=== PATIENT | female | born 1955 | race African-American/Black ===

== ENCOUNTER 2016-10-11 22:28 | Observation (INO) | payer OTHER ==
[~2016-10-11] VITALS: Ht 165.1 cm; Wt 95.1 kg
[2016-10-11] MEDS ORDERED: ACETAMINOPHEN 325 MG TAB PO STA (22:43)
[2016-10-11] MEDS ORDERED: SODIUM CHLORIDE 0.9% 1L BAG IV* STA (22:43)
[2016-10-11 23:29] LABS: ADD SCAN DIFF NO
[2016-10-11 23:33] LABS: BASOPHILS % 0.4 % (0.0-2.0); EOSINOPHILS # 0.5 10^3/ul (0.0-0.5); EOSINOPHILS % 4.3 % (0.0-7.0); HEMATOCRIT 30.8 % (37.0-47.0); HEMOGLOBIN 9.8 g/dl (12.0-16.0); LYMPHOCYTES # 1.9 10^3/ul (0.8-2.9); LYMPHOCYTES % 16.9 % (15.0-51.0); MEAN CORPUSCULAR HEMOGLOBIN 29.4 pg (29.0-33.0); MEAN CORPUSCULAR HGB CONC 31.8 g/dl (32.0-37.0); MEAN CORPUSCULAR VOLUME 92.5 fl (82.0-101.0); MEAN PLATELET VOLUME 10.9 fl (7.4-10.4); MONOCYTE # 0.9 10^3/ul (0.3-0.9); MONOCYTES % 7.9 % (0.0-11.0); NEUTROPHIL # 7.7 10^3/ul (1.6-7.5); PLATELET COUNT 497 10^3/UL (140-415); RED BLOOD COUNT 3.33 10^6/ul (4.20-5.40); RED CELL DISTRIBUTION WIDTH 14.2 % (11.5-14.5)
[2016-10-11 23:42] LABS: INR 0.87; PROTIME 11.8 Sec (12.2-14.2); PT RATIO 0.9
[2016-10-11 23:43] LABS: PARTIAL THROMBOPLASTIN TIME 24.7 Sec (25.0-35.0)
--- NOTE | 2016-10-12 00:02 | RADRPT ---
PROCEDURE: XR Chest. CLINICAL INDICATION: Chest pain. Possible sepsis. TECHNIQUE: Single frontal view of the chest was obtained COMPARISON: None FINDINGS: The heart and mediastinum are within normal limits. The lungs are clear. There is no pleural effusion or pneumothorax. IMPRESSION: No acute disease. RPTAT: [facility] Physician Giuseppe Date Time Electronically viewed and signed by Chauncey Alvarez Physician on 10/12/2016 00:01 RS/
[2016-10-12 00:27] LABS: ALBUMIN 3.3 g/dl (3.3-4.9)
[2016-10-12 00:28] LABS: CHLORIDE 100 mmol/L (97-110); POTASSIUM 3.1 mmol/L (3.5-5.1); SODIUM 140 mmol/L (135-144)
[2016-10-12 00:30] LABS: ANION GAP 15 (8-16); ASPARTATE AMINO TRANSFERASE 33 IU/L (15-46); BILIRUBIN,INDIRECT 0.4 mg/dl (0-1.1); BILIRUBIN,TOTAL 0.4 mg/dl (0.2-1.3); CARBON DIOXIDE 28 mmol/L (21-31); CREATININE 0.93 mg/dl (0.44-1.00)
[2016-10-12 00:31] LABS: ALANINE AMINOTRANSFERASE 27 IU/L (13-69); ALBUMIN/GLOBULIN RATIO 0.97; ALKALINE PHOSPHATASE 112 IU/L (42-121); BLOOD UREA NITROGEN 5 mg/dl (7-20); CALCIUM 8.8 mg/dl (8.4-10.2); GLUCOSE 109 mg/dl (70-220); TOTAL PROTEIN 6.7 g/dl (6.1-8.1)
[2016-10-12 00:43] LABS: TROPONIN-I < 0.012 ng/ml (0.00-0.12)
[2016-10-12 00:48] LABS: ADD UMIC YES; URINE BILIRUBIN (Dip) NEGATIVE (NEGATIVE); URINE BLOOD (Dip) NEGATIVE (NEGATIVE); URINE COLOR LT. YELLOW (YELLOW); URINE GLUCOSE (Dip) NEGATIVE (NEGATIVE); URINE KETONES (Dip) NEGATIVE (NEGATIVE); URINE LEUKOCYTE ESTERASE (Dip) 1+ (NEGATIVE); URINE NITRITE (Dip) NEGATIVE (NEGATIVE); URINE TOTAL PROTEIN (Dip) NEGATIVE (NEGATIVE); URINE UROBILINOGEN (Dip) 0.2 E.U./dL (0.1-1.0)
[2016-10-12 00:58] LABS: BACTERIA,URINE RARE; SQUAMOUS EPITHELIAL CELL,UR MANY; URINE RBCS 0-2 /HPF ([, 0])
[2016-10-12] MEDS ORDERED: ONDANSETRON 4 MG INJ ONE (01:03)
--- NOTE | 2016-10-12 02:35 | RADRPT ---
PROCEDURE: CT of the abdomen and pelvis without contrast CLINICAL INDICATION: Abdominal pain. TECHNIQUE: Spiral CT images through the abdomen and pelvis without the use of contrast. The admin istered radiation dose is CTDI 22.05 and DLP 1244.27. One or more of the following dose reduction t echniques were used: automated exposure control, adjustment of the mA and/or kV according to patient size, or use of iterative reconstruction technique. COMPARISON: None FINDINGS: Lack of oral and intravenous contrast somewhat limits evaluation. Slight dependent atelectasis of the lung bases is seen. No pleural effusion is seen. Clips are seen from prior cholecystectomy. A nastomotic suture is seen along the greater curvature of the stomach. There is a rounded nodule in the region of the falciform ligament which measures 1.5 cm. Thin calci fication is seen at the lateral margin. No other liver lesions are seen. The spleen, adrenals, rig ht kidney, and pancreas are unremarkable in appearance. Tiny nonobstructing stone or hyperdense cys t is seen in the upper pole of the left kidney. Slight vascular calcification is present. There is thickening along the umbilicus. There is skin thickening of the anterior abdominal wall extending from the level of the umbilicus inferiorly along the undersurface of the pannus. Some debris is pre sent in the crease of the pannus.. . There is no evidence for bowel obstruction, free air, or absc ess. The appendix is normal in appearance. There is colonic diverticulosis without evidence of div erticulitis. There is trace pelvic free fluid. The uterus and adnexal structures are grossly unrema rkable. The urinary bladder is unremarkable. There is mild degenerative change of the spine. IMPRESSION: Probable cellulitis of the anterior abdominal wall extending from the umbilicus to the undersurface of the pannus with some debris seen in the crease of the pannus. Trace pelvic free fluid without definite acute intra-abdominal abnormality seen. 1.5 cm nodule in the region of the falciform ligament. MRI follow-up could be obtained if indicated clinically. RPTAT: [facility] Physician Suzie Date Time Electronically viewed and signed by Juany Dooley Physician on 10/12/2016 02:35 LE/
[2016-10-12] MEDS ORDERED: CLINDAMYCIN 900 MG/D5W (PMX) 50 ML IVPB STA (02:37)
[2016-10-12] MEDS ORDERED: VANCOMYCIN 1 GM (PMX) 250 ML IVPB STA (02:37)
[2016-10-12 03:40] VITALS: TEMP 99
--- NOTE | 2016-10-12 04:22 | ERA ---
ER Documentation Chief Complaint Date/Time DATE: 10/12/16 TIME: 04:21 Chief Complaint cwp, febrile, 'just not feeling well' HPI . She says she has had some redness on her abdomen and some chest wall pain. Denies any fevers or chills. Denies any nausea vomiting. Denies any other current complaints. ROS All systems reviewed and are negative except as per history of present illness. Allergies Allergies: Coded Allergies: Penicillins (Verified Allergy, Mild, 10/11/16) metoclopramide (Verified Allergy, Mild, 10/11/16) zolpidem (Verified Allergy, Mild, 10/11/16) ampicillin (Verified Allergy, Unknown, 10/11/16) PMhx/Soc Hx Alcohol Use: No Hx Substance Use: No Hx Tobacco Use: No Smoking Status: Former smoker Physical Exam Vitals Vital Signs Date Time Temp Pulse Resp B/P Pulse Ox O2 Delivery O2 Flow Rate FiO2 10/12/16 01:44 98.6 101 18 127/68 98 Room Air 10/11/16 22:36 100.2 103 19 144/106 100 Physical Exam Const: [] Head: Atraumatic Eyes: Normal Conjunctiva ENT: Normal External Ears, Nose and Mouth. Neck: Full range of motion..~ No meningismus. Resp: Clear to auscultation bilaterally Cardio: Regular rate and rhythm, no murmurs Abd: Soft, non tender, non distended. Normal bowel sounds Skin: No petechiae or rashes Back: No midline or flank tenderness Ext: No cyanosis, or edema Neur: Awake and alert Psych: Normal Mood and Affect Result Diagram: 10/11/16 2310 10/11/16 2346 Results 24 hrs Laboratory Tests Test 10/11/16 23:10 10/11/16 23:46 10/12/16 00:20 10/12/16 02:42 Activated Partial Thromboplast Time 24.7Sec Basophils # 0.010^3/ul Basophils % 0.4% Eosinophils # 0.510^3/ul Eosinophils % 4.3% Hematocrit 30.8% Hemoglobin 9.8g/dl INR International Normalized Ratio 0.87 Lymphocytes # 1.910^3/ul Lymphocytes % 16.9% Mean Corpuscular Hemoglobin 29.4pg Mean Corpuscular Hemoglobin Concent 31.8g/dl Mean Corpuscular Volume 92.5fl Mean Platelet Volume 10.9fl Monocytes # 0.910^3/ul Monocytes % 7.9% Neutrophils # 7.710^3/ul Neutrophils % 70.0% Nucleated Red Blood Cells # 0.010^3/ul Nucleated Red Blood Cells % 0.0/100WBC Platelet Count 08786^3/UL Prothrombin Time 11.8Sec Prothrombin Time Ratio 0.9 Red Blood Count 3.3310^6/ul Red Cell Distribution Width 14.2% White Blood Count 11.010^3/ul Alanine Aminotransferase (ALT/SGPT) 27IU/L Albumin 3.3g/dl Albumin/Globulin Ratio 0.97 Alkaline Phosphatase 112IU/L Anion Gap 15 Aspartate Amino Transf (AST/SGOT) 33IU/L Blood Urea Nitrogen 5mg/dl Calcium Level 8.8mg/dl Carbon Dioxide Level 28mmol/L Chloride Level 100mmol/L Creatinine 0.93mg/dl Direct Bilirubin 0.00mg/dl Globulin 3.40g/dl Glucose Level 109mg/dl Indirect Bilirubin 0.4mg/dl Lactic Acid Level 1.1mmol/L 1.0mmol/L Potassium Level 3.1mmol/L Sodium Level 140mmol/L Total Bilirubin 0.4mg/dl Total Protein 6.7g/dl Troponin I < 0.012ng/ml Urine Bacteria RARE Urine Bilirubin NEGATIVE Urine Clarity SLIGHTLY CLOUDY Urine Color LT. YELLOW Urine Glucose NEGATIVE% Urine Hemoglobin NEGATIVE Urine Ketones NEGATIVE Urine Leukocyte Esterase 1+ Urine Microscopic RBC 0-2/HPF Urine Microscopic WBC 10-25/HPF Urine Nitrite NEGATIVE Urine Specific [place] 1.010 Urine Squamous Epithelial Cells MANY Urine Total Protein NEGATIVE Urine Urobilinogen 0.2 E.U./dL Urine pH 6.0 Current Medications Medications (Trade) Dose Ordered Sig/Cally Route PRN Reason Start Time Stop Time Status Last Admin Dose Admin Sodium Chloride (NS) 2,950 ml BOLUS OVER 2 HOURS STAT IV* 10/11/16 22:43 10/11/16 22:45 DC 10/11/16 23:39 Acetaminophen (Tylenol Tab) 650 mg ONCE STAT PO 10/11/16 22:43 10/11/16 22:45 DC 10/11/16 23:39 Ondansetron HCl 4 mg 4 mg STK-MED ONCE .ROUTE 10/12/16 01:03 10/12/16 01:04 DC Vancomycin HCl 250 ml @ 125 mls/hr ONCE STAT IVPB 10/12/16 02:37 10/12/16 04:36 Clindamycin HCl/ Dextrose (Cleocin 900 Mg/ D5W (Pmx)) 50 ml @ 50 mls/hr ONCE STAT IVPB 10/12/16 02:37 10/12/16 03:36 DC 10/12/16 03:12 Procedures/MDM Medical decision-making: Patient has what looks to be a panniculitis. Patient started on broad-spectrum antibiotics. Patient will be admitted to the IPA physician. IPA physician notified. Departure Diagnosis: Primary Impression: Panniculitis Condition: Stable DOM DODSON Oct 12, 2016 04:22
[2016-10-12] MEDS ORDERED: MAGNESIUM HYDROXIDE 30ML CUP PO PRN (05:30)
[2016-10-12] MEDS ORDERED: ACETAMINOPHEN 325 MG TAB PO PRN ×2 (05:30→13:00)
[2016-10-12] MEDS ORDERED: DOCUSATE SODIUM 100 MG CAP PO PRN (05:30)
[2016-10-12] MEDS ORDERED: HYDROCODONE/APAP (5/325) TAB PO PRN ×2 (05:30)
[2016-10-12] MEDS ORDERED: BISACODYL 10 MG SUPP PR PRN ×2 (05:30→13:00)
[2016-10-12] MEDS ORDERED: NACL 0.9% 3 ML SYG IV SCH (05:30)
[2016-10-12] MEDS ORDERED: VANCOMYCIN IV PER PHARMACY XX SCH (05:30)
[2016-10-12] MEDS ORDERED: POTASSIUM CHLORIDE (SR) 20 MEQ TAB PO STA ×2 (05:34→12:04)
[2016-10-12 05:46] VITALS: BP 150/86; PULSE 83; RESP 20; Ht 165.1 cm; Wt 95.1 kg
[2016-10-12] MEDS: ONDANSETRON 4 MG INJ IV PRN (06:31)
[2016-10-12] MEDS ORDERED: LEVOFLOXACIN 750MG/D5W (PMX) 150 ML IVPB SCH (07:00)
[2016-10-12 07:46] VITALS: BP 152/70; RESP 16
[2016-10-12 08:31] LABS: POTASSIUM 3.3 mmol/L (3.5-5.1)
[2016-10-12 08:34] LABS: CREATININE 0.83 mg/dl (0.44-1.00)
[2016-10-12 08:35] LABS: CALCIUM 8.8 mg/dl (8.4-10.2); MAGNESIUM 1.2 mg/dl (1.7-2.5); PHOSPHORUS 3.4 mg/dl (2.5-4.9)
[2016-10-12] MEDS ORDERED: ENOXAPARIN 40 MG/0.4 ML SYG SC SCH (09:00)
[2016-10-12] MEDS ORDERED: FAMOTIDINE 20 MG TAB PO SCH (09:00)
[2016-10-12] MEDS: VANCOMYCIN 1 GM in NS 250 ML IVPB SCH ×2 (09:40→21:49)
[2016-10-12] MEDS ORDERED: GLUCAGON 1 MG INJ IM PRN (12:30)
[2016-10-12] MEDS ORDERED: DEXTROSE 50% 50 ML SYRINGE IV PRN ×2 (12:30)
[2016-10-12] MEDS ORDERED: ALPRAZOLAM 0.5 MG TAB PO PRN (12:30)
[2016-10-12] MEDS ORDERED: GLUCOSE GEL 15 GRAM TUBE BUCCAL PRN (12:30)
[2016-10-12] MEDS ORDERED: GLUCOSE GEL 15 GRAM TUBE PO PRN ×2 (12:30)
[2016-10-12] MEDS ORDERED: traMADol 50 MG TAB PO PRN (13:00)
[2016-10-12] MEDS ORDERED: ALBUTEROL 0.083% (NEB) 2.5 MG/3 ML AMP HHN PRN (13:00)
[2016-10-12] MEDS ORDERED: ONDANSETRON 4 MG TAB PO PRN (13:00)
[2016-10-12] MEDS ORDERED: HYDROCODONE/APAP (10/325) TAB PO PRN (13:00)
[2016-10-12] MEDS ORDERED: IPRATROPIUM (NEB) 0.5 MG/2.5 ML AMP HHN PRN (13:00)
[2016-10-12] MEDS ORDERED: MAGNESIUM OXIDE 400 MG TAB PO SCH (13:00)
[2016-10-12] MEDS ORDERED: MAGNESIUM SULFATE 4 GM/100 ML 100 ML IVPB ONE (13:30)
[2016-10-12] MEDS ORDERED: CHOLECALCIFEROL 1,000 UNIT TAB PO SCH ×2 (14:00→21:00)
[2016-10-12] MEDS ORDERED: HYDROmorphONE 1 MG/ML SYG IV PRN (14:00)
[2016-10-12 14:45] LABS: CREATINE KINASE 90 IU/L (23-200)
[2016-10-12 14:58] LABS: CK-MB 0.23 ng/ml (0.0-2.4)
[2016-10-12] MEDS ORDERED: ALBU2.5V3 NEB (14:58)
[2016-10-12] MEDS ORDERED: ATOR20TA38 PO (14:58)
[2016-10-12] MEDS ORDERED: MONT4GRA PO (14:58)
[2016-10-12] MEDS ORDERED: DULO60CA59 PO (14:58)
[2016-10-12] MEDS ORDERED: TRAM50TA2 PO (14:58)
[2016-10-12] MEDS ORDERED: ALPR0.5T6 PO (14:58)
[2016-10-12] MEDS ORDERED: TRAV2.5D BOTH EYES (14:58)
[2016-10-12] MEDS ORDERED: AMLO2.5T78 PO (14:58)
[2016-10-12] MEDS ORDERED: PANT40SU PO (14:58)
[2016-10-12] MEDS ORDERED: BISA-57 PR (14:58)
[2016-10-12] MEDS ORDERED: HYDR-902 PO (14:58)
[2016-10-12] MEDS ORDERED: ZOF8 PO (14:58)
[2016-10-12] MEDS ORDERED: MAGN400T28 PO (14:58)
[2016-10-12] MEDS ORDERED: LOSA100T7 PO (14:58)
[2016-10-12] MEDS ORDERED: ACET500C5 PO (14:58)
[2016-10-12] MEDS ORDERED: IPRA3AMP INHALATION (14:58)
[2016-10-12] MEDS ORDERED: POTA10TA97 PO (14:58)
[2016-10-12] MEDS ORDERED: BUDE6HFA INHALATION (14:58)
[2016-10-12] MEDS ORDERED: GABA300C16 PO (14:58)
[2016-10-12] MEDS ORDERED: LACTINEX PO (14:58)
[2016-10-12] MEDS ORDERED: ENOX40DI14 SC (14:58)
[2016-10-12] MEDS ORDERED: METF500T PO (14:58)
[2016-10-12] MEDS ORDERED: CHOL400T10 PO (14:58)
[2016-10-12 14:59] LABS: TROPONIN-I < 0.012 ng/ml (0.00-0.12)
[2016-10-12] MEDS: SALMETEROL/FLUTICASONE 250/50 INHA INH SCH ×2 (15:00→23:00)
[2016-10-12] MEDS: HYDROmorphONE 1 MG/ML SYG IV PRN ×2 (15:02→18:28)
[2016-10-12] MEDS: INSULIN ASPART [NOVOLOG] 3 ML PEN SC SCH ×2 (17:55→21:00)
[2016-10-12] MEDS ORDERED: metFORMIN 500 MG TAB PO SCH (17:55)
[2016-10-12] MEDS: PANTOPRAZOLE (EC) 40 MG TAB PO SCH (18:26)
[2016-10-12 19:44] VITALS: BP_SYST 139; BP_SYST 183; BP_DIAS 107; BP_DIAS 90; RESP 20
[2016-10-12] MEDS ORDERED: GABAPENTIN 300 MG CAP PO SCH (21:00)
[2016-10-12] MEDS ORDERED: MONTELUKAST 10 MG TAB PO SCH (21:00)
[2016-10-12] MEDS ORDERED: DULOXETINE 30 MG CAP DR PO SCH (21:00)
[2016-10-12] MEDS ORDERED: LATANOPROST 0.005% 2.5 ML OPH BOTH EYES SCH (21:00)
[2016-10-12] MEDS ORDERED: ATORVASTATIN 40 MG TAB PO SCH (21:00)
[2016-10-12] MEDS: LACTOBACILLUS RHAMNOSUS CAP PO SCH (21:48)
--- NOTE | 2016-10-12 22:06 | HP ---
DATE OF ADMISSION: 10/12/2016 PRIMARY CARE PHYSICIAN: ____ CURRENT PHYSICIAN: Dr. Osvaldo [facility]lieb [facility]. CHIEF COMPLAINT ON ADMISSION: Chest pain. HISTORY OF PRESENT ILLNESS: This is a 61-year-old female with morbid obesity, diabetes mellitus, wh ich was diet controlled before and recently started on metformin approximately 2 months ago, also a complicated previous history of gastric sleeve placement, chronic nausea, and anxiety disorder that she has been self-treating marijuana at home, and also more recently status post total abdominal hys terectomy and bilateral salpingo-oophorectomy in 08/2016, complicated by abdominal wall abscess and infection status post incision and drainage on 09/23/2016. Currently, has a wound VAC and apparentl y supposed to be on 21 days of vancomycin for IV antibiotic treatment. She is on day 10 today. She has been residing at a local jail facility where apparently she has been experiencing th is chronic nausea, vomiting. Yesterday, she had an episode of vomiting and dry heaving, after which she started complaining of chest pain radiating from her epigastric area up to the left side of her chest and down her arm. By the time she came to the emergency department, the pain was already res olving and overnight it resolved completely. She has no previous cardiac history. Her first set of cardiac enzymes were negative, so was her second set, which is more than 8 hours apart. She denies any chills. She had a low grade fever of 100.2 on presentation. Upon presentation here at [facility], she had a CAT scan of the abdomen and pelvis, which showed cellulitis of the anterior abdominal wall extending from the umbilicus to the undersurface of the pannus with some linnea ris seen in the crease of the pannus. This is probably remnant of her abscess and infection that parker s been under treatment. There is actually a wound VAC in place. She also has a rounded nodule in t he region of the falciform ligament and trace pelvic free fluid. She remained afebrile. Currently, vital signs are stable. White blood cell count was slightly elevated at 11, but looks like that parker s been the case as an outpatient. Currently, she is only complaining of the nausea and this chronic vomiting. She has been on metformin for the past 2 months, which will be discontinued at this time , as this may be a side effect of the metformin. SHE HAS MULTIPLE ALLERGIES LISTED. She has been o n Protonix daily, which will be increased to b.i.d. along with Zofran as needed for nausea. We will adjust her diet to a diabetic diet and also diet appropriate for patients post gastric sleeve. She is on observation on a medical/surgical bed for the next 48 hours while we are trying to place her. She already has voiced that she would rather go to a jail facility within her [facility] in [place] versus going home at this point to finish her antibiotic treatment. We will order f or physical therapy along with wound care. ALLERGIES: 1. PENICILLIN. 2. AMPICILLIN. 3. REGLAN. 4. AMBIEN. 5. SHE ALSO REPORTS ALLERGY TO NORCO. PAST MEDICAL HISTORY: 1. Anterior abdominal wall abscess, status post incision and drainage on 09/23/2016 and 09/28/2016, currently with wound VAC in place and healing on IV antibiotics. 2. Chronic obstructive pulmonary disease without exacerbation. 3. Anxiety disorder. 4. Fibromyalgia. 5. Diabetic polyneuropathy. 6. Diabetes mellitus. 7. Hypertension. 8. Vitamin D deficiency. 9. Hyperlipidemia. 10. Chronic pain syndrome. 11. Morbid obesity. PAST SURGICAL HISTORY: 1. Status post gastric sleeve. 2. Status post total abdominal hysterectomy and bilateral salpingo-oophorectomy on 09/01/2016. SOCIAL HISTORY: The patient has been residing at a jail facilities or subacute care for the past month, at least. She has been also on IV antibiotics. Otherwise, prior to that she was li ving at home with a caregiver, apparently, as she lives in [facility]. She denies alcohol or tob acco use currently, but she is daily marijuana user that she needs for control of her chronic nausea , which tells us that it was already present prior to her hospitalizations and also uses it for her anxiety disorder. OUTPATIENT MEDICATIONS: 1. Albuterol nebulizer every 4 hours as needed for shortness of breath or wheezing. 2. Ipratropium nebulizers every 4 hours as needed for shortness of breath or wheezing. 3. Alprazolam 0.5 mg p.o. q.8 hours p.r.n. anxiety. 4. Norvasc 5 mg p.o. daily. 5. Atorvastatin 40 mg p.o. at bedtime. 6. Vitamin D 1000 units p.o. daily. 7. Dulcolax suppository 10 mg rectally every 48 hours as needed if no bowel movement. 8. Duloxetine 60 mg p.o. at bedtime. 9. Gabapentin 300 mg p.o. at bedtime. 10. Lactinex 1 tab p.o. twice daily. 11. Losartan 100 mg p.o. daily. 12. Lovenox 40 mg subcutaneously daily for DVT prophylaxis. 13. Magnesium oxide 400 mg p.o. 3 times a day. 14. Metformin 500 mg p.o. twice daily. 15. Singulair 10 mg p.o. daily. 16. [place] 10/325 two tabs p.o. every 6 hours p.r.n. pain. The patient actually reports not taking it because it causes nausea. 17. Zofran 8 mg p.o. every 6 hours p.r.n. nausea and vomiting. 18. Potassium chloride 10 mEq daily. 19. Protonix 40 mg p.o. daily. 20. Symbicort 160/4.5 two puffs inhaled twice daily. 21. Tramadol 50 mg 1 tab p.o. every 6 hours p.r.n. moderate pain and 2 tabs p.o. every 6 hours p.r. n. severe pain. 22. Travoprost eyedrops daily for glaucoma. 23. Tylenol 650 mg p.o. q.6h. p.r.n. fevers. 24. Zofran 8 mg 1 tab p.o. every ____ hours p.r.n. nausea, vomiting. PHYSICAL EXAMINATION: VITAL SIGNS: Temperature is 98.2 with a T-max of 100.2, pulse of 99, respiratory rate of 16, blood pressure 152/70. The patient is saturating 96% on room air. GENERAL: She is morbidly obese. She is in no acute distress, currently lying in bed. 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 HEENT: Pupils are equally round and reactive to light. Extraocular muscles are intact. Anicteric sclerae. NECK: No JVD, no thyromegaly noted. HEART: Regular rate and rhythm. No murmur, rubs, or gallops. ABDOMEN: She does have a slight tenderness to palpation in epigastric area. Abdomen is soft, nondi stended. She claims that she has some tenderness in the suprapubic area after she throws up. The w ound VAC is in place currently, again not plugged in. EXTREMITIES: No edema, clubbing, or cyanosis. NEUROLOGIC: Grossly intact. LABORATORY DATA: White blood cell count 11.0, hemoglobin 9.8, hematocrit 30.8, platelet count of 49 7. Differential on the white blood cell count is within normal. Chemistry with a sodium of 143, po tassium 3.3, chloride 103, bicarbonate 26, BUN 5, creatinine 0.83, glucose of 128, alkaline phosphor us 8.8, phosphorus 3.4, calcium 8.8, magnesium of 1.2. INR is 0.87, PT 11.8, PTT 24.7. Urinalysis is grossly negative with 1+ leukocyte esterase. RADIOLOGICAL DATA: 1. Chest x-ray shows no acute disease. 2. CAT scan of the abdomen and pelvis shows probable cellulitis of the anterior abdominal wall exte nding from the umbilicus to the undersurface of the pannus with some debris seen in the crease of th e pannus. This is an improvement actually. The patient is status post incision and drainage and a wound VAC in place. Trace pelvic fluid without definite acute intraabdominal abnormality is seen, 1 .5 cm nodules in the region of the falciform ligament. EKG on admission shows normal sinus rhythm, no acute ST or T-wave abnormalities. First set of cardiac enzyme was negative at midnight with a troponin less than 0.012. The second se t is pending at this point. ASSESSMENT AND PLAN: This is a 61-year-old female with: 1. Episode of chest pain, which is atypical, likely from a gastric standpoint. This is in onset af ter she actually had episodes of nausea, vomiting multiple times. Seems to be epigastric mainly. S he was also anxious at that time. Currently is resolved. Will continue proton pump inhibitors and increase to a b.i.d. dosing. Cardiac enzymes are negative. A 2-D echocardiogram will be done just for completion, but again this is unlikely a cardiac source of her discomfort. She has been on deep vein thrombosis prophylaxis and on room air, comfortable. 2. Diabetes mellitus. We will hold her metformin for now, given her chronic nausea, vomiting. Jus t have her on sliding scale insulin and adjust her diet. 3. Chronic nausea and now subacute episodes of vomiting. Apparently, the patient did have an EGD i n the past already. This seems to be chronic, likely related to her gastric sleeve or to her anxiet y. She claims that she has treated it with marijuana as an outpatient. Continue alprazolam p.r.n. anxiety. Increase her proton pump inhibitor. Zofran has been ordered p.r.n. THE PATIENT REPORTS A LLERGY TO REGLAN. 4. Chronic obstructive pulmonary disease. Continue current regimen including Singulair, nebulizer treatment, and Symbicort. The patient reports that she uses Breo Ellipta at home, which is not avai lable here. 5. Anxiety disorder. Continue Cymbalta and alprazolam as needed. 6. Fibromyalgia and chronic pain syndrome. Continue current medications. The patient reports that as an outpatient she is on Dilaudid p.r.n. SHE CLAIMS ALLERGIES TO NORCO. She is reluctant to padmini ing tramadol. I will give her doses of Dilaudid here IV. I have explained to her that she will not be discharged with Dilaudid and she is agreeable to that plan. She does have a pain management lukas tanian as an outpatient. 7. Diabetic polyneuropathy. Continue Neurontin. 8. Hypertension. Continue current medications including Losartan and Norvasc. 9. Vitamin D deficiency. Continue vitamin D supplementation. 10. Abdominal wall recurrent abscess, status post incision and drainage. Currently in the recovery time and healing process. Wound VAC to be maintained. The CT seems to be improving based on her h istory and the current findings on CT. She is on appropriate antibiotic therapy that she needs to c ontinue for another 11 days, total of 21 days. She is on vancomycin. We will dose per pharmacy. 11. Prophylaxis. Continue Lovenox for deep vein thrombosis prophylaxis. The patient also on lambert n pump inhibitors. DISPOSITION: A 2D echocardiogram, repeat cardiac enzymes, and will [facility] with [facility] health in the next 24 to 48 hours. Dictated By: YULY LEE/TERESSA Conf#: [id number] DID#: [id number]
[2016-10-13] MEDS: HYDROmorphONE 1 MG/ML SYG IV PRN ×2 (01:24→18:40)
[2016-10-13] MEDS ORDERED: ACCU-CHEK XX SCH (02:00)
[2016-10-13] MEDS: traMADol 50 MG TAB PO PRN ×2 (04:11→13:30)
[2016-10-13] MEDS: PANTOPRAZOLE (EC) 40 MG TAB PO SCH ×2 (04:58→18:39)
[2016-10-13] MEDS: ALPRAZOLAM 0.5 MG TAB PO PRN ×2 (04:58→20:24)
[2016-10-13 05:42] LABS: ADD SCAN DIFF NO
[2016-10-13] MEDS ORDERED: PANTOPRAZOLE (EC) 40 MG TAB PO SCH (06:00)
[2016-10-13 06:11] LABS: BASOPHIL # 0.1 10^3/ul (0.0-0.1); BASOPHILS % 0.7 % (0.0-2.0); EOSINOPHILS # 0.6 10^3/ul (0.0-0.5); EOSINOPHILS % 5.3 % (0.0-7.0); HEMATOCRIT 32.5 % (37.0-47.0); HEMOGLOBIN 9.9 g/dl (12.0-16.0); LYMPHOCYTES # 1.5 10^3/ul (0.8-2.9); LYMPHOCYTES % 12.2 % (15.0-51.0); MEAN CORPUSCULAR HEMOGLOBIN 28.8 pg (29.0-33.0); MEAN CORPUSCULAR HGB CONC 30.5 g/dl (32.0-37.0); MEAN CORPUSCULAR VOLUME 94.5 fl (82.0-101.0); MONOCYTES % 7.8 % (0.0-11.0); NEUTROPHIL # 8.9 10^3/ul (1.6-7.5); NEUTROPHILS % 73.5 % (39.0-77.0); PLATELET COUNT 456 10^3/UL (140-415); RED BLOOD COUNT 3.44 10^6/ul (4.20-5.40); RED CELL DISTRIBUTION WIDTH 14.1 % (11.5-14.5); WHITE BLOOD COUNT 12.1 10^3/ul (4.8-10.8)
[2016-10-13 06:40] LABS: POTASSIUM 3.4 mmol/L (3.5-5.1)
[2016-10-13 06:43] LABS: CREATININE 0.83 mg/dl (0.44-1.00)
[2016-10-13 06:44] LABS: MAGNESIUM 2.2 mg/dl (1.7-2.5)
[2016-10-13] MEDS: INSULIN ASPART [NOVOLOG] 3 ML PEN SC SCH ×3 (07:50→17:55)
[2016-10-13 08:05] VITALS: BP 122/72; RESP 19
[2016-10-13] MEDS ORDERED: POTASSIUM CHLORIDE (SR) 10 MEQ TAB PO SCH (09:00)
[2016-10-13] MEDS ORDERED: LOSARTAN 50 MG TAB PO SCH (09:00)
[2016-10-13] MEDS ORDERED: AMLODIPINE 5 MG TAB PO SCH (09:00)
[2016-10-13] MEDS ORDERED: ENOXAPARIN 40 MG/0.4 ML SYG SC SCH (09:00)
[2016-10-13] MEDS: LACTOBACILLUS RHAMNOSUS CAP PO SCH (09:12)
[2016-10-13] MEDS: SALMETEROL/FLUTICASONE 250/50 INHA INH SCH (09:17)
[2016-10-13] MEDS: VANCOMYCIN 1 GM in NS 250 ML IVPB SCH (09:17)
[2016-10-13] MEDS ORDERED: POTASSIUM CHLORIDE (SR) 20 MEQ TAB PO STA (10:12)
[2016-10-13] MEDS ORDERED: LEVOFLOXACIN 750 MG TABLET PO SCH (10:30)
--- NOTE | 2016-10-13 11:05 | PN ---
Date/Time of Note Date/Time of Note DATE: 10/13/16 TIME: 11:04 Assessment/Plan VTE Prophylaxis VTE Prophylaxis Intervention: LMWH Lines/Catheters IV Catheter Type (from Nrs): Peripheral IV Urinary Cath still in place: No Assessment/Plan Assessment/Plan 61-year-old female with: 1. Atypical chest pain, which is atypical, likely from a gastric etiology Resolved this AM, CE negative, 2D echo done Continue bid PPI 2. Diabetes mellitus. Diet controlled, d/c metformin No need for po hypoglycemic agents for now, if need in the future would recommend Tradjenta or Januvia. SSI 3. Chronic nausea and now subacute episodes of vomiting. Apparently, the patient did have an EGD in the past already. Better controlled today and much less symptomatic PPI bid and continue Zofran p.r.n. 4. Chronic obstructive pulmonary disease. Continue current regimen including Singulair, nebulizer treatment, and Symbicort. 5. Anxiety disorder. Continue Cymbalta and alprazolam prn. 6. Fibromyalgia and chronic pain syndrome. Continue current medications. The patient reports that as an outpatient she is on Dilaudid p.r.n. SHE CLAIMS ALLERGIES TO [place]. Tolerating Tramadol so far Dilaudid prn IV. I have explained to her that she will not be discharged with Dilaudid and she is agreeable to that plan. She does have a pain management physician as an outpatient. 7. Diabetic polyneuropathy. Continue Neurontin. 8. Hypertension. Continue Losartan and Norvasc. 9. Vitamin D deficiency. Continue vitamin D supplementation. 10. Abdominal wall recurrent abscess, status post incision and drainage. Currently in the recovery time and healing process. On CT abdo/pelvis, wound seems to be improving based on her history and the current findings on CT Wound VAC to be re applied at SNF, appreciate recommendations from Wound care services here. She is on appropriate antibiotic therapy that she needs to continue for another 10 days, total of 21 days. On vancomycin, Levaquin po added x 10 days, 500 mg po daily. Prophylaxis. Continue Lovenox for deep vein thrombosis prophylaxis, already on proton pump inhibitors. DISPOSITION: Plan for discharge back to the group home facility when bed available, patient wishes not to go back to the SNF she is coming from and currently [place] assistant case manager looking for SNF in [facility] which is where the patient leaves and has her support system. Subjective 24 Hr Interval Summary Free Text/Dictation Patient doing better with much less Nausea and tolerating po today but complaints of some flare of fibromyalgia Off Metformin and [place] and on bid PPI No epigastric or chest pain and CE negative Labs OK and Levaquin added to abx regimen On Vanco Exam/Review of Systems Vital Signs Vitals Vital Signs Date Time Temp Pulse Resp B/P Pulse Ox O2 Delivery O2 Flow Rate FiO2 10/13/16 08:05 98.5 89 19 122/72 95 10/12/16 05:46 Room Air Intake and Output 10/12/16 10/12/16 10/13/16 15:00 23:00 07:00 Intake Total 1180 ml 570 ml Output Total 1400 ml 440 ml Balance -220 ml 130 ml Exam Constitutional: alert, obese, oriented, well developed Respiratory: clear to auscultation, normal air movement Cardiovascular: nl pulses, regular rate and rhythm Gastrointestinal: non-tender, other (abdo wound with packing currently as wound vac to be re applied at [facility] ), soft Extremities: normal pulses Neurological: CLEANER II-XII intact, nl mental status, nl speech, other (better strength ) Results Result Diagram: 10/13/16 0420 10/13/16 0420 Results 24 hrs Laboratory Tests Test 10/12/16 13:03 10/12/16 14:00 10/12/16 17:47 10/12/16 21:45 Bedside Glucose 128 139 124 Creatine Kinase 90 Creatine Kinase Index 0.3 Creatinine Kinase MB (Mass) 0.23 Troponin I < 0.012 Test 10/13/16 04:20 10/13/16 08:26 Anion Gap 16 Basophils # 0.1 Basophils % 0.7 Blood Urea Nitrogen 3 L Calcium Level 9.0 Carbon Dioxide Level 26 Chloride Level 100 Creatinine 0.83 Eosinophils # 0.6 H Eosinophils % 5.3 Glucose Level 116 Hematocrit 32.5 L Hemoglobin 9.9 L Lymphocytes # 1.5 Lymphocytes % 12.2 L Magnesium Level 2.2 # Mean Corpuscular Hemoglobin 28.8 L Mean Corpuscular Hemoglobin Concent 30.5 L Mean Corpuscular Volume 94.5 Mean Platelet Volume 11.0 H Monocytes # 1.0 H Monocytes % 7.8 Neutrophils # 8.9 H Neutrophils % 73.5 Nucleated Red Blood Cells # 0.0 Nucleated Red Blood Cells % 0.0 Phosphorus Level 3.0 Platelet Count 456 H Potassium Level 3.4 L Red Blood Count 3.44 L Red Cell Distribution Width 14.1 Sodium Level 139 White Blood Count 12.1 H Bedside Glucose 110 Medications Medications Current Medications Ondansetron HCl (Zofran Inj) 4 mg Q6H PRN IV NAUSEA AND/OR VOMITING Last administered on 10/12/16 06:31; Admin Dose 4 MG; Start 10/12/16 at 05:30 Docusate Sodium (Colace) 100 mg Q12H PRN PO CONSTIPATION; Start 10/12/16 at 05: 30 Magnesium Hydroxide 30 ml 30 ml DAILY PRN PO CONSTIPATION; Start 10/12/16 at 05 :30 Vancomycin HCl (Vancocin) 250 ml @ 125 mls/hr Q12H IVPB Last administered on 09:17; Admin Dose 125 MLS/HR; Start 10/12/16 at 09:00 Diagnostic Test (Pha) (Accucheck) 1 ea 02 XX ; Start 10/13/16 at 02:00 Miscellaneous Information 1 ea NOTE XX ; Start 10/12/16 at 12:30 Glucose (Glutose) 15 gm Q15M PRN PO DECREASED GLUCOSE; Start 10/12/16 at 12:30 Glucose (Glutose) 22.5 gm Q15M PRN PO DECREASED GLUCOSE; Start 10/12/16 at 12: 30 Dextrose (D50w Syringe) 25 ml Q15M PRN IV DECREASED GLUCOSE; Start 10/12/16 at 12:30 Dextrose (D50w Syringe) 50 ml Q15M PRN IV DECREASED GLUCOSE; Start 10/12/16 at 12:30 Glucagon (Glucagen) 1 mg Q15M PRN IM DECREASED GLUCOSE; Start 10/12/16 at 12:30 Glucose (Glutose) 15 gm Q15M PRN BUCCAL DECREASED GLUCOSE; Start 10/12/16 at 12 :30 Alprazolam (Xanax) 0.5 mg Q8H PRN PO ANXIETY Last administered on 10/13/16 04: 58; Admin Dose 0.5 MG; Start 10/12/16 at 13:00 Amlodipine Besylate (Norvasc) 5 mg DAILY PO Last administered on 10/13/16 09: 16; Admin Dose 5 MG; Start 10/13/16 at 09:00 Atorvastatin Calcium (Lipitor) 40 mg HS PO Last administered on 10/12/16 21:47 ; Admin Dose 40 MG; Start 10/12/16 at 21:00 Bisacodyl (Dulcolax Supp) 10 mg Q48H PRN AR CONSTIPATION; Start 10/12/16 at 13: 00 Duloxetine HCl (Cymbalta) 60 mg QHS PO Last administered on 10/12/16 21:47; Admin Dose 60 MG; Start 10/12/16 at 21:00 Gabapentin (Neurontin) 300 mg QHS PO Last administered on 10/12/16 21:47; Admin Dose 300 MG; Start 10/12/16 at 21:00 Lactobacillus Acidophilus/ Rhamnosus (Culturelle) 1 cap BID PO Last administered on 10/13/16 09:12; Admin Dose 1 CAP; Start 10/12/16 at 21:00 Losartan Potassium (Cozaar) 100 mg DAILY PO Last administered on 10/13/16 09: 16; Admin Dose 100 MG; Start 10/13/16 at 09:00 Enoxaparin Sodium (Lovenox) 40 mg DAILY SC Last administered on 10/13/16 09:35 ; Admin Dose 40 MG; Start 10/13/16 at 09:00 Montelukast Sodium (Singulair) 10 mg HS PO Last administered on 10/12/16 21:48 ; Admin Dose 10 MG; Start 10/12/16 at 21:00 Ondansetron HCl (Zofran Tab) 8 mg Q6H PRN PO NAUSEA AND/OR VOMITING; Start at 13:00 Potassium Chloride (Klor-Con 10) 10 meq DAILY PO Last administered on 09:16; Admin Dose 10 MEQ; Start 10/13/16 at 09:00 Salmeterol Xinafoate/ Fluticasone (Advair 250/50 Diskus) 1 inh BID INH Last administered on 10/13/16 09:17; Admin Dose 1 INH; Start 10/12/16 at 15:00 Tramadol HCl (Ultram) 50 mg Q6H PRN PO PAIN LEVEL 1-5; Start 10/12/16 at 13:00 Tramadol HCl (Ultram) 100 mg Q6H PRN PO PAIN LEVEL 6-10 Last administered on 04:11; Admin Dose 100 MG; Start 10/12/16 at 13:00 Latanoprost (Xalatan) 1 drop HS BOTH EYES Last administered on 10/12/16 21:50 ; Admin Dose 1 DROP; Start 10/12/16 at 21:00 Acetaminophen (Tylenol Tab) 650 mg Q6H PRN PO PAIN AND OR ELEVATED TEMP; Start 10/12/16 at 13:00 Pantoprazole (Protonix Tab) 40 mg BID@,18 PO Last administered on 10/13/16 04:58; Admin Dose 40 MG; Start 10/12/16 at 18:00 Hydromorphone HCl (Dilaudid) 0.5 mg Q6H PRN IV PAIN Last administered on 01:24; Admin Dose 0.5 MG; Start 10/12/16 at 14:00 Hydromorphone HCl (Dilaudid) 1 mg Q6H PRN IV PAIN Last administered on 09:18; Admin Dose 1 MG; Start 10/12/16 at 14:00 Cholecalciferol (Vitamin D) 1,000 unit HS PO Last administered on 10/12/16 21: 46; Admin Dose 1,000 UNIT; Start 10/12/16 at 21:00 Levofloxacin (Levaquin) 750 mg DAILY PO ; Start 10/13/16 at 10:30 YULY NAGY Oct 13, 2016 11:05
[2016-10-13] MEDS ORDERED: MINERAL OIL 240 ML LOT TOP SCH (12:00)
--- NOTE | 2016-10-13 12:07 | PDOCDIS ---
Discharge Instructions CONDITION Patient Condition: Stable HOME CARE INSTRUCTIONS: Special Diet: 1800 ADA diet and diet for patient post gastric sleeve ACTIVITY: Activity Restrictions: Slowly Increase Activity FOLLOW UP/APPOINTMENTS Appointments Wound Vac to be reapplied at SNF Pharmacy to further dose Vanco x 10 more days [facility], 2016 12:06
[2016-10-13] MEDS ORDERED: EUCERIN 113 GM CR TOP SCH (12:25)
--- NOTE | 2016-10-13 13:57 | RADRPT ---
Echocardiogram Report Patient Name: SANCHEZ WEBSTER Gender: Female Date: 1955 Study Date: 13-Oct-2016 Development Technical Lead: Tomas Carbajal [facility]UST Location: [id number] Ref. Physician: NITESH NAGY Quality: Good Procedures: Transthoracic echocardiogram with complete 2D, M-Mode, and doppler examination. Indications: Chest Pain. 2D/M Mode Doppler Measurement Value Normal Ranges Measurement Value Normal Ranges LVIDd 2D 5.2 3.5 - 5.6 cm AV Peak Erick 1.2 m/sec LVIDs 2D 3.2 2.1 - 4.1 cm AV Peak PG 5.7 mmHg LVPWd 2D 0.9 0.6 - 1.1 cm LVOT Peak Erick 0.9 m/sec IVSd 2D 0.9 0.6 - 1.1 cm LVOT Peak PG 3.3 mmHg AoR Diam 2D 2.6 2.0 - 3.7 cm MV E Peak Erick 0.5 m/sec EDV 2D 130.6 cm3 MV A Peak Erick 0.6 m/sec ESV 2D 32.4 cm3 MV E/A 0.7 LA Dimen 2D 3.3 2.3 - 4.0 cm MV Decel Time 245 msec MV Decel [place] 2 MV E/A 0.7 Findings Left Ventricle: Normal left ventricular systolic function. Normal left ventricular cavity size. Normal left ventricular wall thickness. Ejection fraction is visually estimated at 65 %. Tissue Doppler/Mitral Doppler indices are consistent with impaired relaxation (Stage I diastolic dysfunction). Right Ventricle: Normal right ventricular size. Normal right ventricular systolic function. Left Atrium: The left atrium is normal in size. Right Atrium: The right atrium is normal in size. Mitral Valve: Mitral valve leaflets appear mildly thickened. Mild mitral annular calcification. Trace mitral regurgitation. Aortic Valve: Normal appearance of the aortic valve. No significant aortic stenosis or insufficiency. Tricuspid Valve: Normal appearance and function of the tricuspid valve with trace physiologic regurgitation. Pulmonic Valve: Normal pulmonic valve appearance. Pericardium: Normal pericardium with no significant pericardial effusion. Aorta: Normal aortic root. IVC: Normal size and normal respiratory collapse consistent with normal right atrial pressure. Conclusions 1.Normal left ventricular systolic function. Normal left ventricular cavity size. Normal left ventricular wall thickness. Ejection fraction is visually estimated at 65 %. Tissue Doppler/Mitral Doppler indices are consistent with impaired relaxation (Stage I diastolic dysfunction). 2.Normal right ventricular size. Normal right ventricular systolic function. 3.The left atrium is normal in size. 4.The right atrium is normal in size. 5.No significant valvular stenosis or regurgitation seen. 6.Normal pericardium with no significant pericardial effusion. Electronically Signed By: Everardo Bell 13-Oct-2016 13:57:11 -0700 Patient Name: SANCHEZ WEBSTER Study Date: 13-Oct-[id number]
[2016-10-13] MEDS ORDERED: LIDOCAINE 1% (MDV) 20 ML INJ SC ONE (14:30)
--- NOTE | 2016-10-13 18:23 | RADRPT ---
PROCEDURE: US guidance for PICC line CLINICAL INDICATION: PICC line placement TECHNIQUE: Multiple real-time images were acquired of the patient's arm utilizing a high resolutio n transducer. This was performed by the PICC line nurse for venous access. COMPARISON: None FINDINGS: Ultrasound guidance for PICC line placement. IMPRESSION: Ultrasound guidance for PICC line placement. RPTAT: AA .Wesley Crocker MD, MD Date Time Electronically viewed and signed by .Wesley Crocker MD, on 10/13/2016 18:22 .S/
--- NOTE | 2016-10-13 18:30 | RADRPT ---
PROCEDURE: XR Chest. CLINICAL INDICATION: Check PICC line position. TECHNIQUE: Single frontal view. COMPARISON: 10/11/2016. FINDINGS: There is a left arm PICC line with the tip in the lower superior vena cava. The lungs are clear. The heart size is normal. There is no pleural effusion. There is no pneumothorax. IMPRESSION: 1. Satisfactory position of left arm PICC line. 2. Otherwise normal chest radiograph. RPTAT: QQ .Albaro Castañeda MD, MD Date Time Electronically viewed and signed by .Albaro Castañeda MD, MD on 10/13/2016 18:29 .R/
[2016-10-13] MEDS ORDERED: SOD CHLORIDE 0.9% 100 ML ONE (19:43)
[2016-10-13] MEDS: ONDANSETRON 4 MG INJ IV PRN (20:24)
[2016-10-13] MEDS ORDERED: VANCOMYCIN 750 MG in SOD CHLORIDE 0.9% 150 ML IVPB SCH (22:00)
== END 2016-10-13 21:15 ==
LOC: E/R 22:28 → INTOOBSV 10-12 03:37 → MS1 10-12 03:37
PROVIDERS: ADMIT Internal Medicine; ATTEND Internal Medicine
PROC: 02HV33Z Insertion of Infusion Device into Superior Vena Cava, Percutaneous Approach (ICD-10-PCS; principal; 2016-10-13)
DX: R07.89 Other chest pain (principal); E11.22 Type 2 diabetes mellitus with diabetic chronic kidney disease; E11.42 Type 2 diabetes mellitus with diabetic polyneuropathy; L02.211 Cutaneous abscess of abdominal wall; M79.7 Fibromyalgia; J44.9 Chronic obstructive pulmonary disease, unspecified; I12.9 Hypertensive chronic kidney disease with stage 1 through stage 4 chronic kidney disease, or unspecified chronic kidney disease; R11.2 Nausea with vomiting, unspecified; N18.2 Chronic kidney disease, stage 2 (mild); M79.3 Panniculitis, unspecified; E55.9 Vitamin D deficiency, unspecified; F12.90 Cannabis use, unspecified, uncomplicated; F41.9 Anxiety disorder, unspecified; Z88.0 Allergy status to penicillin; Z88.8 Allergy status to other drugs, medicaments and biological substances; Z88.1 Allergy status to other antibiotic agents; Z87.891 Personal history of nicotine dependence; Z88.6 Allergy status to analgesic agent; Z98.84 Bariatric surgery status
CPT/HCPCS: 36569; 71010; 74176; 76937; 80048; 80053; 80202; 81001; 82550; 82553; 82962; 83605; 83735; 84100; 84484; 85025; 85610; 85730; 87040; 87081; 87086; 87400; 93005; 93306; 96374; 96375; 99285; G0378; J1170; J1650; J1815; J1956; J2405; J3370; J3475; J7030; 81003; 99217